=== PATIENT | female | born 1965 | race Caucasian/White ===

== ENCOUNTER 2017-09-27 15:09 | Emergency (ER) | payer OTHER ==
[2017-09-27] MEDS: NICARDipine HCL 30 MG CAPSULE PO (23:44)
[2017-09-28] MEDS ORDERED: NICARDipine HCL 30 MG CAPSULE PO
== END 2017-09-28 00:30 | disposition home or self-care (01) ==
LOC: E/R 09-28 00:30
DX: I10 Essential (primary) hypertension (principal); G47.00 Insomnia, unspecified; I16.9 Hypertensive crisis, unspecified; Z79.82 Long term (current) use of aspirin
CPT/HCPCS: 99284; Z7502

== ENCOUNTER 2017-10-07 00:16 | Emergency (ER) | payer OTHER ==
[2017-10-07] MEDS: KETOROLAC 30 MG INJ IV (02:36)
[2017-10-07 02:47] LABS: ADD MAN DIFF? NO
[2017-10-07 02:50] LABS: BASOPHILS % 0.1 % (0.0-2.0); EOSINOPHILS # 0.2 10^3/ul (0.0-0.5); EOSINOPHILS % 2.8 % (0.0-7.0); HEMATOCRIT 41.1 % (37.0-47.0); HEMOGLOBIN 14.9 g/dl (12.0-16.0); LYMPHOCYTES # 2.5 10^3/ul (0.8-2.9); LYMPHOCYTES % 34.6 % (15.0-51.0); MEAN CORPUSCULAR HEMOGLOBIN 31.3 pg (29.0-33.0); MEAN CORPUSCULAR HGB CONC 36.3 g/dl (32.0-37.0); MEAN CORPUSCULAR VOLUME 86.3 fl (82.0-101.0); MEAN PLATELET VOLUME 10.3 fl (7.4-10.4); MONOCYTE # 0.4 10^3/ul (0.3-0.9); NEUTROPHILS % 56.2 % (39.0-77.0); PLATELET COUNT 270 10^3/UL (140-415); RED BLOOD COUNT 4.76 10^6/ul (4.20-5.40)
[2017-10-07 02:50] LABS: WHITE BLOOD COUNT 7.1 10^3/ul (4.8-10.8)
[2017-10-07 03:12] LABS: ANION GAP 16 (8-16); BLOOD UREA NITROGEN 14 mg/dl (7-20); CALCIUM 9.7 mg/dl (8.4-10.2); CARBON DIOXIDE 26 mmol/L (21-31); CHLORIDE 105 mmol/L (97-110); CREATININE 0.86 mg/dl (0.44-1.00); GLUCOSE 108 mg/dl (70-220); POTASSIUM 3.2 mmol/L (3.5-5.1); SODIUM 144 mmol/L (135-144)
[2017-10-07 03:24] LABS: TROPONIN-I < 0.012 ng/ml (0.00-0.12)
== END 2017-10-07 05:22 | disposition home or self-care (01) ==
LOC: E/R 00:16
DX: R07.89 Other chest pain (principal); E87.6 Hypokalemia; I10 Essential (primary) hypertension; Z79.82 Long term (current) use of aspirin
CPT/HCPCS: 36415; 71045; 80048; 84484; 85025; 93005; 96374; 99285-25